=== PATIENT | male | born 1975 | race Caucasian/White ===

== ENCOUNTER 2024-08-07 15:31 | Emergency (ER) | payer OTHER, SELFPAY ==
[2024-08-07 15:36] VITALS: BP 123/87
[2024-08-07 16:19] LABS: % Basophils 0.2 % (0-2); % Eosinophils 0.3 % (0-6); % Immature Granulocytes 0.5 % (0-0.5); % Lymphocytes 7.8 % (20.5-51.1); % Neutrophils 85.2 % (42.2-75.2); Absolute Eosinophils 0.1 10^3/uL (0-0.7); Absolute Immature Granulocytes 0.1 10^3/uL (0-0.05); Absolute Lymphocytes 1.3 10^3/uL (1.2-3.4); Absolute Neutrophils 14.7 10^3/uL (1.4-6.5); Hematocrit 48.2 % (39.0-52.0); Hemoglobin 16.6 g/dL (13.0-18.0); Mean Corp Hgb Conc. 34.4 g/dL (33.0-37.0); Mean Corpuscular Hgb 31.3 pg (27.0-31.0); Mean Corpuscular Volume 90.8 fL (80.0-94.0); Mean Platelet Volume 9.2 fL (7.4-10.4); Nucleated Red Blood Cells % 0 % (-); Platelet Count 276 10^3/uL (130-400); Red Blood Cell Count 5.31 10^6/uL (4.70-6.10); Red Cell Dist. Width 15.2 % (11.5-14.5); White Blood Cell Count 17.2 10^3/uL (4.8-10.8)
[2024-08-07 16:26] LABS: ALT (SGPT) 30 U/L (0-50); AST (SGOT) 24 U/L (17-59); Albumin 4.9 g/dl (3.5-5.0); Alkaline Phosphatase 64 U/L (38-126); Blood Urea Nitrogen 28 mg/dl (9-20); Calcium 9.6 mg/dl (8.4-10.2); Carbon Dioxide 25 mmol/L (22-30); Chloride 103 mmol/L (98-107); Glucose 110 mg/dl (70-99); Lipase 135 U/L (23-300); Potassium 4.2 mmol/L (3.5-5.1); Sodium 140 mmol/L (135-145); Total Bilirubin 0.7 mg/dl (0.2-1.3); Total Protein 7.4 g/dl (6.3-8.2); eGFR > 60.00
[2024-08-07 16:35] LABS: Urine Albumin 2+ (Neg - Trace); Urine Bilirubin 2+ (Negative); Urine Character Slightly Cloudy (Clear); Urine Color Yellow; Urine Glucose Negative (Negative); Urine Ketone 3+ (Negative); Urine Leukocyte 1+ (Negative); Urine Nitrite Negative (Negative); Urine Occult Blood Negative (Negative); Urine Urobilinogen 2+ (Neg - 1+)
--- NOTE | 2024-08-07 16:43 | ED.GENMED ---
History of Present Illness
General
Chief Complaint: Abdominal Symptoms
Time Seen by Provider: 08/07/24 16:33
History of Present Illness
History of Present Illness:
TIME OF INITIAL ENCOUNTER: 4:40 PM
HPI: This morning at 11 AM, the patient developed an upper abdominal discomfort. Shortly thereafter he started vomiting. He then developed diarrhea. He overall does not feel well but does not have any significant pain currently. He reportedly did
vomit in triage. He states that he had some sort of umbilical hernia repair when he was a child.
EXAM:
GENERAL: Well appearing in no significant distress
HEENT: Moist oral mucosa
CARDIOVASCULAR: No murmurs, normal heart rate, regular rhythm, No chest wall tenderness
PULMONARY: No respiratory distress, breath sounds are clear and equal
ABDOMEN: Soft with no peritoneal signs, minimal if any upper tenderness, no periumbilical or lower abdominal tenderness
NEUROLOGIC: Excellent strength all extremities, no coordination deficits
PSYCHIATRIC: Appropriate mental status, normal insight and judgement
EXTREMITIES: Nontender, no edema, moves all extremities equally
SKIN: No rash, no lesions
NUMBER AND COMPLEXITY OF PROBLEMS ADDRESSED AT THE ENCOUNTER
� Chronic conditions affecting care: High blood pressure
� Acute Exacerbation and/or Progression of Chronic Illness: This is an acute problem
� Differential Diagnosis includes: Viral gastroenteritis, foodborne illness, colitis, very low suspicion for appendicitis, very low suspicion for ureteral stone, very low suspicion for ACS
AMOUNT AND/OR COMPLEXITY OF DATA TO BE REVIEWED AND ANALYZED
� I performed an independent evaluation of and my interpretation is:
EKG: Sinus 99, normal axis, no acute ST abnormality
CT:
X-rays:
Laboratory Studies: Urinalysis shows 3+ ketones, HPI is not consistent with UTI, white count 17.2, hemoglobin 16.6, BUN 28, glucose 110, lipase normal
Other:
� Review of other/old records: The patient had right ureteral stone in 2019
� Clinical information was obtained by an independent historian: None needed
� Prescriptions/Medications Considered but not given:
� Further testing considered but not performed: Considered CT given the leukocytosis however his symptoms include diarrhea and strong suspect more of a viral syndrome as opposed to anything surgical as he has no significant
tenderness.
RISK OF COMPLICATIONS AND/OR MORBIDITY OR MORTALITY OF PATIENT MANAGEMENT
� Social determinants of health affecting care: Lives at home
� Discussion with other providers:
� Escalation of care including admission/observation vs risk of discharge considered: Leukocytosis is noted however the patient does not have any significant abdominal pain currently and has a nonfocal abdominal exam. The
patient does have ketones in his urine�IV fluids given. He was also given IV Pepcid, IV Zofran, and IV Toradol. EKG is normal.
ANY OTHER UPDATES:
6:30 PM: I reassessed patient, the patient feels significant improved. He does not feel that he needs any further nausea medicine. He appears well-hydrated at time of discharge. I also reassessed his abdomen and there is no tenderness including
no tenderness in the right lower quadrant.
Past History
Past History
ED Past Medical History: Other (kidney stones)
ED Past Surgical History: None
Phy Exam
Physical Exam
Physical Exam:
See HPI
Sepsis
Sepsis Screening
Sepsis Assessment: Sepsis Ruled Out
Sepsis Screen
Sepsis Screen: Sepsis Ruled Out
Date: 08/07/24
Time: 18:31
Course
Orders/Labs/Results
Orders:
Orders
08/07/24 15:36
Electrocardiogram (*1) Urgent
Reason for Study: Abdominal Pain
EKG- Treatment ONCE
IV Insert/Care/Rem.- Treatment PRN
08/07/24 15:49
Complete Blood Count/With Diff Urgent
Comprehensive Metabolic Panel Urgent
Lipase Urgent
08/07/24 15:58
Urinalysis Reflex To Culture Urgent
Date Specimen was Collected: 08/07/24
Time Specimen was Collected: 15:36
Urine Microscopic Reflex Cult Urgent
Urine Culture Urgent
LIGIA Source: U
Specimen Description:
Date Specimen was Collected: 08/07/24
Time Specimen was Collected: 15:36
08/07/24 16:42
0.9% Sodium Chloride 1000 ml [Nss] 1,000 ml IV BOLUS
Famotidine [Pepcid] 20 mg IV NOW STA
Ketorolac [Toradol] 15 mg IV NOW STA
Ondansetron Injectable [Zofran] 4 mg IV NOW STA
Abnormal Lab Results
08/07/24 08/07/24
15:49 15:58
WBC 17.2 H 10^3/uL
(4.8-10.8)
MCH 31.3 H pg
(27.0-31.0)
RDW 15.2 H %
(11.5-14.5)
Abs Immat Gran (auto) 0.1 H 10^3/uL
(0-0.05)
Absolute Neuts (auto) 14.7 H 10^3/uL
(1.4-6.5)
Absolute Monos (auto) 1.0 H 10^3/uL
(0.1-0.6)
Neutrophils % 85.2 H %
(42.2-75.2)
Lymphocytes % 7.8 L %
(20.5-51.1)
BUN 28 H mg/dl
(9-20)
Glucose 110 H mg/dl
(70-99)
Urine Ketones 3+ A
(Negative)
Urine Bilirubin 2+ A
(Negative)
Urine Urobilinogen 2+ A
(Neg - 1+)
Leukocyte Esterase Rfl 1+ A
(Negative)
Urine RBC 3-6 A /HPF
(0-2)
Urine Bacteria (Reflex) Many A
(Negative)
Urine Albumin (Reflex) 2+ A
(Neg - Trace)
08/07/24 15:49
08/07/24 15:49
Vital Signs
Initial and Last Documented VS:
Initial Vital Signs
Temp Pulse Resp BP Pulse Ox
36.5 C 107 18 123/87 98
08/07/24 15:36 08/07/24 15:36 08/07/24 15:36 08/07/24 15:36 08/07/24 15:36
Last Documented Vital Signs
Temp Pulse Resp BP Pulse Ox
36.5 C 107 18 123/87 98
08/07/24 15:36 08/07/24 15:36 08/07/24 15:36 08/07/24 15:36 08/07/24 15:36
*Critical Care Note
Total Time (30-74mins, 75-104mins- exclusive of procedures): Not Applicable
ED Attending Note
-
Portions of this chart may have been created with voice recognition software.� Occasional wrong word or��sound alike� substitutions may have occurred due to the inherent limitations of voice recognition software.
Discharge Plan
Departure
Patient Disposition: Home (Routine Discharge)
Date of Disposition: 08/07/24
Time of Disposition: 18:27
Patient with high blood pressure during this ER visit?: Yes
Discharge Problem:
Vomiting and diarrhea
Instructions: Diarrhea in teens and adults, Nausea and Vomiting, Adult (DC)
Prescriptions:
No Action
No Current Medications
0
Referrals:
Tosha Katz CRNP [Family Provider] -
Activity Restrictions/Additional Instructions:
We gave you a liter of fluid to rehydrate you. Your urinalysis does suggest that you are somewhat dehydrated. We also gave you IV Toradol, IV Zofran, and IV Pepcid. Return here if worse or other concerns. I recommend that you eat only small
amounts over the next day or so.
Interventions
Interventions:
*Risk Screen - Suicide Last Done: 08/07/24 15:36
*General Assessment Last Done: 08/07/24 17:10
*Neglect/Abuse Screening Last Done: 08/07/24 15:36
*ED COVID-19 Vaccine History Last Done: 08/07/24 17:10
AW-Ltzbhw-Lesvdhczxw Assessment Last Done: 08/07/24 17:09
Discharge Date and Time
Print Language: SOMALI
[2024-08-07] MEDS: NSS 1000 IV (17:04)
[2024-08-07] MEDS: TORADOL 15 MG IV (17:04)
[2024-08-07] MEDS: ZOFRAN 4 MG IV (17:05)
[2024-08-07] MEDS: PEPCID 20 MG IV (17:05)
[2024-08-07 17:12] LABS: Urine Mucus Many
[2024-08-07 17:13] LABS: Urine Squamous Cell 0-2 /LPF (Few)
[2024-08-07 17:14] LABS: Urine Bacteria Many (Negative)
== END 2024-08-07 18:54 | disposition home or self-care (01) ==
LOC: EMR 15:31
PROVIDERS: Emergency Medicine; EMERGENCY PHYSICIAN Emergency Medicine; FAMILY PHYSICIAN Nurse Practitioner Adult Health
DX: R11.10 Vomiting, unspecified (principal); R19.7 Diarrhea, unspecified; R10.10 Upper abdominal pain, unspecified
CPT/HCPCS: 99284; 96374; 96375 ×2; 96361; 80053; 81003; 81015; 83690; 85025; 87086; 93005